=== PATIENT | male | born 1985 | race Caucasian/White ===

== ENCOUNTER 2017-07-14 09:11 | Emergency (ER) | payer OTHER ==
[~2017-07-14] VITALS: Ht 190.5 cm; Wt 74.8 kg
[~2017-07-14 09:11] MED LIST: HYDR-971 PO
[2017-07-14] MEDS ORDERED: IPRATRPIUM/ALBUTEROL 0.5/2.5MG 3 ML NEBU. NEB ONE (10:15)
--- NOTE | 2017-07-14 10:21 | RAD ---
CHEST PA LATERAL History: COUGH TIMES 4 DAYS Comparison: Two-view chest October 06, 2011. Findings: The cardiomediastinal silhouette is normal. Pulmonary vasculature is normal. Right middle lobe airspace disease. No pleural effusion or pneumothorax is seen. There is no acute bone abnormality. IMPRESSION: Right middle lobe pneumonia. Electronically signed by: Anderson Braga MD (07/14/2017 10:18 AM) [id number]
[2017-07-14] MEDS ORDERED: IPRA15SP NS (10:29)
[2017-07-14] MEDS ORDERED: AMOX500C PO (10:29)
--- NOTE | 2017-07-14 10:29 | PHYS DOC ---
Past History Past Medical History: Bipolar, Schizophrenia, Other Past Surgical History: Other Smoking: Less than 1pk/day Additional Smoking Information: PT. SMOKE HALF A PACK PER DAY. Alcohol Use: None Drug Use: Marijuana Adult General Chief Complaint Chief Complaint: NAUSEA/VOMITING/DIARRHEA HPI HPI Patient is a 31 year old M who presents with cough and congestion over the past 1 week. He feels that his cough has gradually and progressively increased. His cough is productive and occasionally has blood-tinged sputum. He describes moderate nasal congestion and drainage. This morning he noted vomiting both with and without cough. He denies abdominal pain however he does have mild chest pain associated with coughing. He has no other associated symptoms at this time. He has no other exacerbating or relieving factors. Review of Systems Review of Systems Constitutional: He does describe chills and sweats in the evenings. Eyes: Denies change in visual acuity, redness, or eye pain [] HENT: Denies nasal congestion or sore throat [] Respiratory: Negative except history of present illness Cardiovascular: No additional information not addressed in HPI [] GI: Denies abdominal pain, nausea, vomiting, bloody stools or diarrhea [] : Denies dysuria or hematuria [] Musculoskeletal: Denies back pain or joint pain [] Integument: Denies rash or skin lesions [] Neurologic: Denies headache, focal weakness or sensory changes [] Endocrine: Denies polyuria or polydipsia [] All other systems were reviewed and found to be within normal limits, except as documented in this note. Family History Family History No pertinent family medical history was reported Current Medications Current Medications Current Medications Medications (Trade) Dose Ordered Sig/[facility] Start Time Stop Time Status Last Admin Dose Admin Albuterol/ Ipratropium (Duoneb) 3 ml 1X ONCE 07/14/17 10:15 07/14/17 10:16 DC Allergies Allergies Allergies Coded Allergies Type Severity Reaction Last Updated Verified codeine Allergy Intermediate 03/20/15 No Physical Exam Physical Exam Constitutional: Well developed, well nourished, no acute distress, non-toxic appearance. [] HENT: Normocephalic, atraumatic, moderate nasal mucosa erythema and edema bilaterally with moderate drainage noted Eyes: EOMI, conjunctiva normal, no discharge. [] Neck: Normal range of motion, no tenderness, supple, no stridor. [] Cardiovascular:Heart rate regular rhythm, Lungs & Thorax: Bilateral breath sounds clear to auscultation [] minimal rhonchi noted on the right basis Abdomen: Bowel sounds normal, soft, no tenderness, no masses, no pulsatile masses. [] Skin: Warm, dry, no erythema, no rash. [] Extremities: No tenderness, no cyanosis, no clubbing, ROM intact, no edema. [] Neurologic: Alert and oriented X 3, normal motor function, normal sensory function, no focal deficits noted. [] Psychologic: Affect normal, judgement normal, mood normal. [] Current Patient Data Vital Signs Vital Signs Date Time Temp Pulse Resp B/P (MAP) Pulse Ox O2 Delivery O2 Flow Rate FiO2 07/14/17 09:49 97.7 94 20 95 Room Air EKG EKG [] Radiology/Procedures Radiology/Procedures Chest x-ray Impressions: Right middle lobe infiltrate Course & Med Decision Making Course & Med Decision Making Pertinent Labs and Imaging studies reviewed. (See chart for details) [] Dragon Disclaimer Dragon Disclaimer This electronic medical record was generated, in whole or in part, using a voice recognition dictation system. Departure Departure: Impression: Primary Impression: Community acquired pneumonia Disposition: HOME, SELF-CARE Condition: STABLE Referrals: PCP,NO (PCP) Patient Instructions: Pneumonia, Adult Additional Instructions: Vincent was seen in the emergency department for cough and congestion. No emergency medical condition was found on history or physical exam. His symptoms were found to be most consistent with pneumonia which was confirmed on chest x- ray. He was started on antibiotic and given a prescription for nose spray. He was encouraged use nasal saline rinses regularly. He was advised to return to the emergency room if he develops new or worsening symptoms. He was also advised follow-up with his primary care doctor in the next 3-5 days for further management. Scripts Ipratropium Powell (IPRATROPIUM BROMIDE) 15 Ml Bieber 15 ML NS TID for 7 Days, SPRAY Prov: DIANE TELLO MD 07/14/17 Amoxicillin (AMOXICILLIN) 500 Mg Capsule 1 CAP PO TID for 7 Days, #21 CAP Prov: DIANE TELLO MD 07/14/17 Problem Qualifiers Primary Impression: Community acquired pneumonia Laterality: right Lung location: middle lobe of lung Qualified Codes: J18.1 - Lobar pneumonia, unspecified organism DIANE TELLO MD Jul 14, 2017 10:29
[2017-07-14] MEDS ORDERED: AMOXICILLIN 250 MG CAPSULE PO ONE (10:45)
[2017-07-14 11:19] VITALS: BP 128/61
== END 2017-07-14 10:39 | disposition home or self-care (01) ==
LOC: ER 09:11
DX: J18.1 Lobar pneumonia, unspecified organism (principal); F20.9 Schizophrenia, unspecified; F31.9 Bipolar disorder, unspecified; F17.210 Nicotine dependence, cigarettes, uncomplicated; F12.10 Cannabis abuse, uncomplicated; Z88.5 Allergy status to narcotic agent
CPT/HCPCS: 71046; 94640; 99284; J7620

== ENCOUNTER 2017-09-18 06:27 | Emergency (ER) | payer OTHER ==
[~2017-09-18] VITALS: Ht 190.5 cm; Wt 74.8 kg
[~2017-09-18 06:27] MED LIST changes: +AMOX500C PO; +IPRA15SP NS
[2017-09-18 06:48] VITALS: BP 126/73
--- NOTE | 2017-09-18 07:00 | PHYS DOC ---
Past History Past Medical History: Bipolar, Schizophrenia, Other Past Surgical History: Other Smoking: Less than 1pk/day Alcohol Use: None Drug Use: Marijuana Adult General Chief Complaint Chief Complaint: KNEE INJURY HPI HPI 31-year-old male presents with left knee pain. The patient was walking to work this morning when he had sudden shooting pain in the lateral aspect of the knee. He states that it "gave out" and his knees buckled. He did not fall all the way to the ground because he caught himself. He has had intermittent trouble with this knee over the last 1 year. He says that he was told 1 year ago that he might have a meniscal tear. He has not had his knee scoped. The patient is able to walk, but he has a limp. He denies any recent trauma. He has no other complaints. Review of Systems Review of Systems Constitutional: Denies fever or chills [] Eyes: Denies change in visual acuity, redness, or eye pain [] HENT: Denies nasal congestion or sore throat [] Respiratory: Denies cough or shortness of breath [] Cardiovascular: No additional information not addressed in HPI [] GI: Denies abdominal pain, nausea, vomiting, bloody stools or diarrhea [] : Denies dysuria or hematuria [] Musculoskeletal: Left knee pain[] Integument: Denies rash or skin lesions [] Neurologic: Denies headache, focal weakness or sensory changes [] Endocrine: Denies polyuria or polydipsia [] All other systems were reviewed and found to be within normal limits, except as documented in this note. Allergies Allergies Allergies Coded Allergies Type Severity Reaction Last Updated Verified codeine Allergy Intermediate 03/20/15 No Physical Exam Physical Exam Constitutional: Well developed, well nourished, no acute distress, non-toxic appearance. [] HENT: Normocephalic, atraumatic, bilateral external ears normal, oropharynx moist, no oral exudates, nose normal. [] Eyes: PERRLA, EOMI, conjunctiva normal, no discharge. [] Neck: Normal range of motion, no tenderness, supple, no stridor. [] Cardiovascular:Heart rate regular rhythm, no murmur [] Lungs & Thorax: Bilateral breath sounds clear to auscultation [] Abdomen: Bowel sounds normal, soft, no tenderness, no masses, no pulsatile masses. [] Skin: Warm, dry, no erythema, no rash. [] Back: No tenderness, no CVA tenderness. [] Extremities: Left knee lateral tenderness with palpation, no swelling, no ecchymosis, ligaments stable. [] Neurologic: Alert and oriented X 3, normal motor function, normal sensory function, no focal deficits noted. [] Psychologic: Affect normal, judgement normal, mood normal. [] EKG EKG [] Radiology/Procedures Radiology/Procedures [] Course & Med Decision Making Course & Med Decision Making Pertinent Labs and Imaging studies reviewed. (See chart for details) The patient's exam was unremarkable except for the patient's subjective statement of pain. His ligaments are stable. There is no signs of swelling. He complained of pain with an unusual combination of tests which made a distinct pattern of injury difficult to isolate. The patient has requested a brace and we will attempt out that him with the sleeve brace. It is possible that the patient doesn't want to work today and is feigning injury. I have recommended rest, ice and ibuprofen. [] Dragon Disclaimer Dragon Disclaimer This electronic medical record was generated, in whole or in part, using a voice recognition dictation system. Departure Departure: Referrals: PCP,NO (PCP) YUDITH ECKERT DO Sep 18, 2017 07:00
== END 2017-09-18 07:19 | disposition home or self-care (01) ==
LOC: ER 06:27
DX: M25.562 Pain in left knee (principal); F31.9 Bipolar disorder, unspecified; F20.9 Schizophrenia, unspecified; F17.200 Nicotine dependence, unspecified, uncomplicated; Z88.5 Allergy status to narcotic agent
CPT/HCPCS: 99282

== ENCOUNTER 2019-08-07 10:09 | Emergency (ER) | payer OTHER ==
[~2019-08-07] VITALS: Ht 190.5 cm; Wt 70.8 kg
[~2019-08-07 10:09] MED LIST changes: +HYDR-3165 PO; -HYDR-971 PO
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
--- NOTE | 2019-08-07 10:43 | RAD ---
EXAM: FOREARM LEFT, ELBOW LEFT 2V, HAND LEFT 3V 08/07/2019 12:00 AM CLINICAL INDICATION:Pain COMPARISON:None TECHNIQUE:2 views of left elbow, 2 views of the left forearm, 3 views of the left hand FINDINGS: Left elbow: No acute fracture. Alignment is normal. Joint spaces are maintained. No joint effusion or soft tissue abnormality. Left forearm: No acute fracture. Alignment is normal. Soft tissue is normal. Left hand: No acute fracture. Alignment is normal. Joint spaces are maintained. Small carpal boss incidentally noted at the dorsal CMC joints. No soft tissue swelling. IMPRESSION:Normal radiographs of the left elbow, forearm, and hand. Electronically signed by: Danita Majano MD (08/07/2019 10:39 AM) [id number]
[2019-08-07] MEDS ORDERED: ACETAMINOPHEN 325 MG TABLET PO ONE (10:45)
--- NOTE | 2019-08-07 10:55 | RAD ---
WRIST 3V LEFT 08/07/2019 10:20 AM INDICATION: Wrist pain COMPARISON: None available. TECHNIQUE: 3 views of the left wrist are provided. FINDINGS/ IMPRESSION: There is no acute fracture or dislocation. 5 mm likely bone island identified in the distal radius. Joint spaces are maintained. Bone mineralization is within normal limits. Regional soft tissues are within normal limits. There is no soft tissue gas or osseous erosion. No radiopaque foreign body. Electronically signed by: Eveline Valiente MD (08/07/2019 10:52 AM) [id number]
[2019-08-07 11:28] VITALS: BP 123/68
== END 2019-08-07 11:29 | disposition home or self-care (01) ==
LOC: ER 10:09
DX: M25.532 Pain in left wrist (principal); M25.522 Pain in left elbow; G89.11 Acute pain due to trauma; F31.9 Bipolar disorder, unspecified; F20.9 Schizophrenia, unspecified; F17.200 Nicotine dependence, unspecified, uncomplicated; F90.9 Attention-deficit hyperactivity disorder, unspecified type; Z88.5 Allergy status to narcotic agent; Z91.040 Latex allergy status; V18.4XXA Pedal cycle driver injured in noncollision transport accident in traffic accident, initial encounter; Y93.89 Activity, other specified; Y92.89 Other specified places as the place of occurrence of the external cause; Y99.8 Other external cause status
CPT/HCPCS: 29125; 73070; 73090; 73110; 73130; 99284

== ENCOUNTER 2019-11-11 12:31 | Emergency (ER) | payer OTHER ==
[~2019-11-11] VITALS: Ht 190.5 cm; Wt 74.1 kg
[2019-11-11 12:35] VITALS: BP 149/80
[2019-11-11] MEDS ORDERED: DIPH,PERTUSS(ACELL),TET VAC/PF 0.5 ML SYRINGE. VAX IM ONE (13:00)
--- NOTE | 2019-11-11 13:56 | PHYS DOC ---
Past History Past Medical History: Bipolar, Schizophrenia, Other Additional Past Medical Histor: ADHD Past Surgical History: Other Additional Past Surgical Histo: LEFT KNEE, NOSE Smoking: Less than 1pk/day Additional Smoking Information: PACK/DAY Alcohol Use: None Drug Use: Marijuana Adult General Chief Complaint Chief Complaint: LACERATION/AVULSION HPI HPI Patient is a 33-year-old male who presents for laceration of ventral portion of right fifth digit. Onset was 1 hour prior to arrival while working outside with concrete and rocks. 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 He has not taken anything for the pain. Bleeding resolved spontaneously without intervention. Patient reports tetanus shot is out of date. Patient reports 5/10 severity focal pain that is nonradiating, no changes in motor or sensory functions, no other neurologic or vascular symptoms Review of Systems Review of Systems Fourteen body systems of review of systems have been reviewed. See HPI for pertinent positives and negative responses, other martinez all other systems are negative, non-pertinent or non-contributory Current Medications Current Medications Current Medications Medications (Trade) Dose Ordered Sig/[facility] Start Time Stop Time Status Last Admin Dose Admin Diphtheria/ Pertussis/Tetanus Vacc (ADACEL TDap SYRINGE) 0.5 ml ONCE ONCE 11/11/19 13:00 11/11/19 13:01 DC 11/11/19 13:04 0.5 ML Allergies Allergies Allergies Coded Allergies Type Severity Reaction Last Updated Verified codeine Allergy Intermediate 08/07/19 No latex Allergy Unknown 08/07/19 Yes Physical Exam Physical Exam Constitutional: Well developed, well nourished, no acute distress, non-toxic appearance. HENT: Normocephalic, atraumatic, bilateral external ears normal, oropharynx moist, no oral exudates, nose normal. Eyes: PERRLA, EOMI, conjunctiva normal, no discharge. Neck: Normal range of motion, no tenderness, supple, no stridor. Cardiovascular: Heart rate regular in sinus rhythm per monitor, no palpable palpitations Lungs & Thorax: Bilateral chest rise, no observed respiratory distress or accessory muscle use Abdomen: Bowel sounds normal, soft, no tenderness, no masses, no pulsatile masses. Nonsurgical abdomen, no peritoneal signs Skin: Warm, dry, no erythema, no rash. Back: No tenderness, no CVA tenderness. Extremities: No cyanosis, no clubbing, ROM intact, no edema. Fingers: normal inspection, moderately tender to palpation over site of laceration on ventral right fifth digit with overlying 2 cm superficial laceration without any obvious nerve/tendon involvement, no Knievel signs, no foreign body, normal color, normal tendon function including FDS and FDP functions Hand: normal inspection, non tender, normal color, tendon function intact Wrist: normal inspection, non tender, normal color, no joint swelling Neurologic: Alert and oriented X 3, grossly normal motor & sensory function, no focal deficits noted. Psychologic: Anxious affect, judgement normal, mood normal. Current Patient Data Vital Signs Vital Signs Date Time Temp Pulse Resp B/P (MAP) Pulse Ox O2 Delivery O2 Flow Rate FiO2 11/11/19 12:35 98.3 58 20 149/80 (103) 100 Room Air EKG EKG [] Radiology/Procedures Radiology/Procedures [] Course & Med Decision Making Course & Med Decision Making ABCs grossly non-concerning History and physical exam consistent with simple laceration Recommended suture placement, patient who had full capacity declined in favor of Dermabond application. Verbal consent obtained and this was applied without any complications Tetanus was updated this ER visit ER course discussed, patient reports not having PCP, given resources of local PCPs to call and establish care for follow-up in upcoming 1 to 7 days Strict return precautions were discussed at length with good understanding by patient, he understood that if he could not get into PCP in upcoming 1 to 7 days and if symptoms worsen to re-present to our ER for reevaluation All questions and concerns addressed prior to ER departure in stable condition Dragon Disclaimer Dragon Disclaimer This electronic medical record was generated, in whole or in part, using a voice recognition dictation system. Laceration Repair Lac Repair Indication: Superficial 2 cm laceration to ventral portion of right fifth digit between MIP and DIP area Procedure: The patient was placed in the appropriate position after copious irrigation with tap water. Site was dried and Dermabond was applied with good border approximation. Total repaired wound length: 2 cm Other Items: Verbal consent obtained, recommended suture placement but patient declined. Patient had full capacity, acknowledged decreased cosmetic and potential motor/sensory consequences of foregoing sutures for glue. The patient tolerated the procedure well without any apparent issues Complications: None Departure Departure: Impression: Primary Impression: Laceration of finger of right hand Disposition: 01 HOME/RESIDENCE PRIOR TO ADM Condition: STABLE Referrals: NAREN CHEEK MD (PCP) Patient Instructions: Laceration Care, Adult Additional Instructions: As instructed prior to ER departure, please ensure you keep your laceration that was fixed with Dermabond glue clean and practice good hand and wound hygiene You have been given a list of local primary care physicians to review, please call 1 of your preference to establish care and be seen in upcoming 1 to 7 days for ER follow-up and continuity of care Strict return precautions were discussed with you prior to discharge, if you are concerned about worsened symptoms revolving your finger laceration please call our emergency department or present again for evaluation It was a pleasure to take care of you and I hope you recover fast! Justification of Admission: Justification of Admission: Justification of Admission Dx: N/A VALENTINA TOWNSEND DO Nov 11, 2019 13:56
== END 2019-11-11 14:05 | disposition home or self-care (01) ==
LOC: ER 12:31
DX: S61.216A Laceration without foreign body of right little finger without damage to nail, initial encounter (principal); F17.200 Nicotine dependence, unspecified, uncomplicated; Z88.5 Allergy status to narcotic agent; Z91.040 Latex allergy status; W26.8XXA Contact with other sharp object(s), not elsewhere classified, initial encounter; Y93.89 Activity, other specified; Y92.89 Other specified places as the place of occurrence of the external cause; Y99.8 Other external cause status
CPT/HCPCS: 12001; 90471; 90715; 99283

== ENCOUNTER 2020-02-18 07:45 | Emergency (ER) | payer OTHER ==
[~2020-02-18] VITALS: Ht 190.5 cm; Wt 73.2 kg
[2020-02-18] MEDS ORDERED: TETRACAINE 0.5% OPHTH SOLUTION 4ML BOTTLE. ONE (08:12)
[2020-02-18] MEDS ORDERED: TETRACAINE 0.5% OPHTH SOLUTION 4ML BOTTLE. OD ONE (08:15)
[2020-02-18] MEDS ORDERED: CIPROFLOXACIN 0.3% OPHTH SOLUTION 2.5ML BOTTLE. OD ONE (08:45)
[2020-02-18] MEDS ORDERED: CYCLOPENTOLATE 1% OPTH SOLUTION 2ML BOTTLE. OD ONE (08:45)
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
[2020-02-18] MEDS ORDERED: HOMA5DRO8 OD (09:34)
[2020-02-18 09:45] VITALS: BP 128/75
== END 2020-02-18 09:52 | disposition home or self-care (01) ==
LOC: ER 07:45
DX: H20.9 Unspecified iridocyclitis (principal); F31.9 Bipolar disorder, unspecified; F20.9 Schizophrenia, unspecified; F43.10 Post-traumatic stress disorder, unspecified; F17.200 Nicotine dependence, unspecified, uncomplicated; Z88.5 Allergy status to narcotic agent; Z91.040 Latex allergy status
CPT/HCPCS: 99283

== ENCOUNTER 2020-11-06 06:19 | Emergency (ER) | payer OTHER ==
[~2020-11-06] VITALS: Ht 190.5 cm; Wt 72.7 kg
[~2020-11-06 06:19] MED LIST changes: +HOMA5DRO8 OD
[2020-11-06] MEDS ORDERED: PRED-220 PO (06:40)
--- NOTE | 2020-11-06 06:40 | PHYS DOC ---
Past History Past Medical History: Bipolar, Schizophrenia, Other Additional Past Medical Histor: PTSD, ADHD Past Surgical History: Other Additional Past Surgical Histo: left knee surgery, broken nasal bone surgery Smoking: Less than 1pk/day Alcohol Use: None Drug Use: Marijuana General Adult EDM: Chief Complaint: SKIN RASH/ABSCESS HPI: HPI: 34-year-old male presents with rash. Patient noticed a rash on his abdomen and thighs that started yesterday. It is spread to part of his chest and is more extensive on his abdomen and legs. It is intensely pruritic. The patient works outside every day. He believes it is likely he got into [employer]. He does wear appropriate clothing and protective equipment. He denies any involvement of his airway. No facial involvement. He has no other complaints this time. Review of Systems: Review of Systems: Constitutional: Denies fever or chills Eyes: Denies change in visual acuity HENT: Denies nasal congestion or sore throat Respiratory: Denies cough or shortness of breath Cardiovascular: Denies chest pain or edema GI: Denies abdominal pain, nausea, vomiting, bloody stools or diarrhea : Denies dysuria Musculoskeletal: Denies back pain or joint pain Integument: Rash Neurologic: Denies headache, focal weakness or sensory changes Endocrine: Denies polyuria or polydipsia Lymphatic: Denies swollen glands Psychiatric: Denies depression or anxiety Allergies: Allergies: Allergies Coded Allergies Type Severity Reaction Last Updated Verified codeine Allergy Intermediate 20 No latex Allergy Unknown 20 Yes Physical Exam: PE: Constitutional: Well developed, well nourished, no acute distress, non-toxic appearance. [] HENT: Normocephalic, atraumatic, bilateral external ears normal, oropharynx moist, no oral exudates, nose normal. [] Eyes: PERRLA, EOMI, conjunctiva normal, no discharge. [] Neck: Normal range of motion, no tenderness, supple, no stridor. [] Cardiovascular:Heart rate regular rhythm, no murmur [] Lungs & Thorax: Bilateral breath sounds clear to auscultation [] Abdomen: Bowel sounds normal, soft, no tenderness, no masses, no pulsatile masses. [] Skin: Erythematous rash with vesicles of the abdomen, scattered chest, bilateral legs, bilateral forearms. [] Back: No tenderness, no CVA tenderness. [] Extremities: No tenderness, no cyanosis, no clubbing, ROM intact, no edema. [] Neurologic: Alert and oriented X 3, normal motor function, normal sensory function, no focal deficits noted. [] Psychologic: Affect normal, judgement normal, mood normal. [] Current Patient Data: Vital Signs: Vital Signs Date Time Temp Pulse Resp B/P (MAP) Pulse Ox O2 Delivery O2 Flow Rate FiO2 11/06/20 06:23 96.8 66 16 123/60 (81) 99 Room Air EKG: EKG: [] Radiology/Procedures: Radiology/Procedures: [] Heart Score: C/O Chest Pain: N/A Risk Factors: Risk Factors: DM, Current or recent (<one month) smoker, HTN, HLP, family history of CAD, obesity. Risk Scores: Score 0 - 3: 2.5% MACE over next 6 weeks - Discharge Home Score 4 - 6: 20.3% MACE over next 6 weeks - Admit for Clinical Observation Score 7 - 10: 72.7% MACE over next 6 weeks - Early Invasive Strategies Course & Med Decision Making: Course & Med Decision Making Pertinent Labs and Imaging studies reviewed. (See chart for details) The patient appears to have poison nolvia dermatitis. I will treat him with 10 days of prednisone taper. I will give the first dose in the emergency room. He is stable for discharge at this time. [] Dragon Disclaimer: Dragon Disclaimer: This electronic medical record was generated, in whole or in part, using a voice recognition dictation system. Departure Departure: Impression: Primary Impression: Poison nolvia dermatitis Disposition: HOME / SELF CARE / HOMELESS Condition: STABLE Referrals: NAREN CHEEK MD (PCP) Patient Instructions: Poison Nolvia, [id number] Scripts Prednisone (PREDNISONE) 10 Mg Tablet 10 MG PO UD for PREDNISONE TAPER, #39 TAB 0 Refills Take 4 tablets by mouth daily for 3 days, then take 3 tablets by mouth daily for 2 days, then take 2 tablet by mouth daily for 2 days, then take 1 tablet by mouth daily for 2 days, then stop. Prov: YUDITH ECKERT DO 11/06/20 YUDITH ECKERT DO Nov 06, 2020 06:40
[2020-11-06 06:45] VITALS: BP 122/68
[2020-11-06] MEDS ORDERED: predniSONE 20 MG TABLET PO ONE (06:45)
== END 2020-11-06 06:47 | disposition home or self-care (01) ==
LOC: ER 06:19
DX: L23.7 Allergic contact dermatitis due to plants, except food (principal); F17.200 Nicotine dependence, unspecified, uncomplicated; Z88.5 Allergy status to narcotic agent; Z91.040 Latex allergy status
CPT/HCPCS: 99283; J7512

== ENCOUNTER 2020-12-01 08:58 | Emergency (ER) | payer OTHER ==
[~2020-12-01] VITALS: Ht 190.5 cm; Wt 70.0 kg
[~2020-12-01 08:58] MED LIST changes: +PRED-220 PO
--- NOTE | 2020-12-01 09:09 | PHYS DOC ---
Past History Past Medical History: Bipolar, Schizophrenia, Other Additional Past Medical Histor: PTSD, ADHD Past Surgical History: Other Additional Past Surgical Histo: left knee surgery, broken nasal bone surgery Smoking: Less than 1pk/day Alcohol Use: None Drug Use: Marijuana Adult General Chief Complaint Chief Complaint: COUGH HPI HPI Patient is a 34-year-old male presenting for URI symptoms. Onset was 1 week ago without any known inciting event, trauma, ingestion, sick contact or recent travel. He has been taking Benadryl and Tylenol as needed for aches and runny nose. Nothing known makes worse. Patient denies any pain just reports classic upper respiratory symptoms such as nasal congestion, dry nonproductive cough, rhinorrhea and postnasal drip. He reports today he had subjective fever and chills prompting him to come in for evaluation. He has not been vaccinated against COVID-19 Review of Systems Review of Systems Fourteen body systems of review of systems have been reviewed. See HPI for pertinent positives and negative responses, other martinez all other systems are negative, non-pertinent or non-contributory Allergies Allergies Allergies Coded Allergies Type Severity Reaction Last Updated Verified codeine Allergy Intermediate 08/07/19 No latex Allergy Unknown 08/07/19 Yes Physical Exam Physical Exam General: Appears well, non toxic, and comfortable Skin: Warm, dry. Normal for ethnicity. HEENT: Atraumatic. PERRLA. Rhinorrhea and congestion. Nasal turbinates boggy b/l. Moist mucous membranes. Uvula midline. Maintaining secretions. No phonation changes. Neck: Trachea midline. Normal ROM. No stridor. Respiratory: Normal WOB. CTAB w/o w/r/r. No tachypnea. Cardiovascular: Regular rate and rhythm. Normal peripheral perfusion. Abdomen: Soft. Non tender. No distension. Back: Normal ROM. Musculoskeletal: No swelling or deformity. Neuro: Alert and oriented x 4. MAEE. Lymph: No cervical LAD. Psych: Normal affect and mood. Current Patient Data Vital Signs Vital Signs Date Time Temp Pulse Resp B/P (MAP) Pulse Ox O2 Delivery O2 Flow Rate FiO2 12/01/20 09:01 99.2 75 18 135/79 (97) 98 Room Air Vital Signs Date Time Temp Pulse Resp B/P (MAP) Pulse Ox O2 Delivery O2 Flow Rate FiO2 12/01/20 09:01 99.2 75 18 135/79 (97) 98 Room Air EKG EKG [] Radiology/Procedures Radiology/Procedures [] Heart Score C/O Chest Pain: No Risk Factors: Risk Factors: DM, Current or recent (<one month) smoker, HTN, HLP, family history of CAD, obesity. Risk Scores: Risk Factors: DM, Current or recent (<one month) smoker, HTN, HLP, family history of CAD, obesity. Course & Med Decision Making Course & Med Decision Making ABCs unremarkable. HPI and physical exam nonconcerning for any emergent or surgical issues. Likely viral syndrome, cannot exclude COVID-19 given current pandemic and so patient was tested with results pending Supportive care practices advised with instructions for home quarantine. Strict return precautions were discussed with verbal understanding by patient, all questions and concerns addressed prior to ER departure Dragon Disclaimer Dragon Disclaimer This electronic medical record was generated, in whole or in part, using a voice recognition dictation system. Departure Departure: Impression: Primary Impression: Person under investigation for COVID-19 Additional Impression: Viral syndrome Disposition: HOME / SELF CARE / HOMELESS Condition: STABLE Referrals: NAREN CHEEK MD (PCP) Additional Instructions: You were seen for runny nose, chills, fever, body aches, and possible infection with COVID-19. Your physical exam was reassuring. We tested you for COVID-19 but this test does not come back for 1 to 2 days. In the meantime you need to quarantine yourself at home away from all other individuals, especially those who are elderly or have any other chronic health issues or an immunocompromised status. You should return to the ED if you develop worsening cough, shortness of breath, chest pain, or any other new or concerning symptoms. Alternate Tylenol and ibuprofen as needed for body aches and pain. If your test does come back positive you need to quarantine yourself for 10 days until symptom-free. You should make sure to drink plenty of fluids and get plenty of rest. Problem Qualifiers VALENTINA TOWNSEND DO Dec 01, 2020 09:09
--- NOTE | 2020-12-03 10:43 | NUR ---
IP: Informed pt of negative covid test. Pt verbalized understanding.
== END 2020-12-01 09:39 | disposition home or self-care (01) ==
LOC: ER 08:58
DX: B34.9 Viral infection, unspecified (principal); F31.9 Bipolar disorder, unspecified; F20.9 Schizophrenia, unspecified; F17.200 Nicotine dependence, unspecified, uncomplicated; Z20.822 Contact with and (suspected) exposure to COVID-19; Z88.5 Allergy status to narcotic agent; Z91.040 Latex allergy status
CPT/HCPCS: 99283; C9803; U0003